=== PATIENT | female | born 1935 | race Caucasian/White ===

== ENCOUNTER 2016-12-28 18:24 | Emergency (ER) | payer MEDICARE ==
[2016-12-28 18:43] VITALS: TEMP 98.9
[2016-12-28 19:07] VITALS: BP 161/70
[2016-12-28 19:13] VITALS: PULSE 72; RESP 16
--- NOTE | 2016-12-28 19:35 | XR ---
EXAMINATION TYPE: XR chest 2V DATE OF EXAM: 12/28/2016 7:29 PM COMPARISON: 04/20/2016 INDICATION: Pain cough TECHNIQUE: 2 view chest FINDINGS: The heart size is normal. The pulmonary vasculature is normal. The lungs are clear. Degenerative changes are at the right shoulder. Lesser degenerative changes at the left shoulder. IMPRESSION: 1. Suspicious focal consolidations are not identified.
--- NOTE | 2016-12-28 19:45 | ED ---
General Adult HPI - General Chief complaint: Upper Respiratory Infection Stated complaint: cough, poss FB in throat Time Seen by Provider: 12/28/16 18:51 Source: patient, family Mode of arrival: ambulatory Limitations: altered mental status - History of Present Illness Initial comments: Is uog-xpyc-gor female with a history of hypertension or presents emergency report for cough. This morning she was taking her medications and seemed to choke on her medications. She then started coughing throughout the day. Her daughter was concerned that she might be developing pneumonia so she decided to come to the emergency department. She has not had any coughing since being in the emergency department. She does not feel short of breath. No fevers or chills. She denies any chest pain. She denies any complaints currently at all. - Related Data Home Medications Medication Instructions Recorded Confirmed Aspirin 81 mg PO DAILY 01/22/14 12/28/16 Atenolol [Tenormin] 25 mg PO BID 01/22/14 12/28/16 Ferrous Sulfate [Feosol] 325 mg PO DAILY 01/22/14 12/28/16 Hydrocodone/Acetaminophen 1 tab PO Q8H PRN 01/22/14 12/28/16 [Hydrocodone/Acetaminophen 5-325] Isosorbide Mononitrate ER [Imdur] 30 mg PO DAILY 01/22/14 12/28/16 Levothyroxine Sodium [Synthroid] 50 mcg PO DAILY 01/22/14 12/28/16 PARoxetine HCL 30 mg PO DAILY 01/22/14 12/28/16 Potassium Chloride [Klor-Con 10] 10 meq PO DAILY 01/22/14 12/28/16 Nystatin 100,000 Unit/gm Powd 1 applic TOPICAL DAILY PRN 01/23/14 12/28/16 [Mycostatin Powder] Allopurinol [Zyloprim] 100 mg PO DAILY 12/28/16 12/28/16 Losartan Potassium 100 mg PO DAILY 12/28/16 12/28/16 Nitroglycerin Sl Tabs [Nitrostat] 0.4 mg SUBLINGUAL Q5M PRN 12/28/16 12/28/16 Omeprazole 20 mg PO DAILY 12/28/16 12/28/16 Previous Rx's Medication Instructions Recorded Furosemide [Lasix] 20 mg PO DAILY #30 tab 01/25/14 Allergies Allergy/AdvReac Type Severity Reaction Status Date / Time amoxicillin Allergy Rash/Hives Verified 12/28/16 19:34 Review of Systems ROS Statement: Those systems with pertinent positive or pertinent negative responses have been documented in the HPI. ROS Other: All systems not noted in ROS Statement are negative. Past Medical History Past Medical History: Hypertension Additional Past Medical History / Comment(s): hypothyroid, mental retardation, chronic pain and hip, osteoarthritis, depression History of Any Multi-Drug Resistant Organisms: None Reported Past Surgical History: Cholecystectomy, Tonsillectomy Additional Past Surgical History / Comment(s): R leg sx, neck sx, cardiac stents Past Anesthesia/Blood Transfusion Reactions: No Reported Reaction Past Psychological History: No Psychological Hx Reported, Depression Smoking Status: Never smoker Past Alcohol Use History: None Reported Additional Past Alcohol Use History / Comment(s): BAT 0 Past Drug Use History: None Reported General Exam - General Exam Comments Initial Comments: Constitutional: Awake alert Appears comfortable Head: Normocephalic atraumatic Eyes: no conjunctival injection No scleral icterus EOMI Neck: No JVD Supple Heart: Regular rate rhythm normal S1-S2 no murmurs Lungs: Clear to auscultation bilaterally No wheezing No rales Abdomen: Soft nondistended nontender Extremities: Non edematous DP pulses intact Radial pulses intact Neuro: A&Ox3 No focal neurologic deficits Psych: Appropriate mood and affect Limitations: altered mental status Course Vital Signs 12/28/16 12/28/16 12/28/16 18:41 18:58 19:05 Temperature 98.9 F Pulse Rate 72 76 Respiratory 20 18 Rate Blood Pressure 208/89 214/90 161/70 O2 Sat by Pulse 95 96 Oximetry 12/28/16 19:12 Temperature Pulse Rate 72 Respiratory 16 Rate Blood Pressure 161/70 O2 Sat by Pulse 98 Oximetry Medical Decision Making - Medical Decision Making This is an 81-year-old female presents emergency department for cough. Chest x- ray was unremarkable for any signs of pneumonitis or pneumonia. She has not had any coughing since being in the emergency department. I told her that she can go home and she needs close follow-up the primary doctor. If she has any worsening or changing symptoms she can return emergency Department. All questions were answered. Disposition Clinical Impression: Cough Disposition: HOME SELF-CARE Condition: Stable Instructions: Cold Symptoms (ED) Additional Instructions: Return emergency Department if the cough becomes worse or if you develop fevers or chills. Follow-up with primary doctor for reevaluation. Referrals: Marcos Nick MD [Primary Care Provider] - 1-2 days
== END 2016-12-28 20:08 | disposition home or self-care (01) ==
LOC: EC 18:24
DX: R05 Cough (principal); R41.82 Altered mental status, unspecified; I10 Essential (primary) hypertension; E03.9 Hypothyroidism, unspecified; M19.90 Unspecified osteoarthritis, unspecified site; F32.9 Major depressive disorder, single episode, unspecified; Z79.82 Long term (current) use of aspirin; Z79.899 Other long term (current) drug therapy; Z88.0 Allergy status to penicillin
CPT/HCPCS: 71020; 99283

== ENCOUNTER 2017-09-10 12:53 | Emergency (ER) | payer MEDICARE ==
[2017-09-10] MEDS ORDERED: KETOROLAC 60 MG/2 ML VIAL IM STA (13:35)
--- NOTE | 2017-09-10 13:43 | ED ---
Fall HPI - General Chief Complaint: Fall Stated Complaint: Fall-facial injury Time Seen by Provider: 09/10/17 13:20 Source: patient Mode of arrival: wheelchair - History of Present Illness Initial Comments: The patient is an 82-year-old female, with a history of mental retardation, not on blood thinners, who presents with chief complaint fall. She presents the emergency department with her cousin who is her primary lens generator. [employer] Concierge states that she was at home, and stood up from the toilet and shortly after fell forward and struck her face on a shower chair. The patient did not lose consciousness. She was able to get up after the fall. The patient has walked since the fall. Patient denies any other injury at this time. She states that she has pain in her shoulders and hips however she has a history of arthritis in those areas. On initial evaluation, the patient is in no acute distress, she is alert and oriented, she understands the conversation around her and is able to answer. - Related Data Home Medications Medication Instructions Recorded Confirmed Aspirin 81 mg PO DAILY 01/22/14 09/10/17 Atenolol [Tenormin] 25 mg PO BID 01/22/14 09/10/17 Ferrous Sulfate [Feosol] 325 mg PO DAILY 01/22/14 09/10/17 Hydrocodone/Acetaminophen 1 tab PO Q8H PRN 01/22/14 09/10/17 [Hydrocodone/Acetaminophen 5-325] Isosorbide Mononitrate ER [Imdur] 30 mg PO DAILY 01/22/14 09/10/17 Levothyroxine Sodium [Synthroid] 50 mcg PO DAILY 01/22/14 09/10/17 PARoxetine HCL 30 mg PO DAILY 01/22/14 09/10/17 Potassium Chloride [Klor-Con 10] 10 meq PO DAILY 01/22/14 09/10/17 Allopurinol [Zyloprim] 100 mg PO DAILY 12/28/16 09/10/17 Losartan Potassium 100 mg PO DAILY 12/28/16 09/10/17 Nitroglycerin Sl Tabs [Nitrostat] 0.4 mg SUBLINGUAL Q5M PRN 12/28/16 09/10/17 Omeprazole 20 mg PO DAILY 12/28/16 09/10/17 Previous Rx's Medication Instructions Recorded Furosemide [Lasix] 20 mg PO DAILY #30 tab 01/25/14 Sulfamethox-Tmp 800-160Mg [Bactrim 1 tab PO Q12HR #14 tab 09/10/17 DS 800-160 mg] Allergies Allergy/AdvReac Type Severity Reaction Status Date / Time amoxicillin Allergy Rash/Hives Verified 09/10/17 13:29 Review of Systems ROS Statement: Those systems with pertinent positive or pertinent negative responses have been documented in the HPI. ROS Other: All systems not noted in ROS Statement are negative. Limitations: ROS unobtainable due to patients medical condition (Mental retardation) Past Medical History Past Medical History: Hypertension Additional Past Medical History / Comment(s): hypothyroid, mental retardation, chronic pain and hip, osteoarthritis, depression History of Any Multi-Drug Resistant Organisms: None Reported Past Surgical History: Cholecystectomy, Tonsillectomy Additional Past Surgical History / Comment(s): R leg sx, neck sx, cardiac stents Past Anesthesia/Blood Transfusion Reactions: No Reported Reaction Past Psychological History: No Psychological Hx Reported, Depression Smoking Status: Never smoker Past Alcohol Use History: None Reported Past Drug Use History: None Reported General Exam Limitations: no limitations General appearance: alert, in no apparent distress Head exam: Present: normocephalic, other (Patient has a large infraorbital hematoma on the right with swelling distally to the mandible. Patient has poor dentition however it appears to be intact. Patient is able to move her jaw well without any pain. There is no nasal bridge tenderness patient has no Rogers sign, there is no otorrhea) Eye exam: Present: PERRL ENT exam: Present: mucous membranes moist, TM's normal bilaterally Neck exam: Present: tenderness (Patient complains of tenderness to palpation of the paraspinal musculature.) Respiratory exam: Present: normal lung sounds bilaterally Cardiovascular Exam: Present: regular rate, normal rhythm GI/Abdominal exam: Present: soft. Absent: distended, tenderness Extremities exam: Present: normal inspection. Absent: pedal edema Neurological exam: Present: alert, oriented X3 Psychiatric exam: Present: normal affect, normal mood Skin exam: Present: warm, dry, intact Course Vital Signs 09/10/17 09/10/17 09/10/17 12:59 15:03 16:13 Temperature 96.8 F L 97.8 F Pulse Rate 80 73 Respiratory 18 20 20 Rate Blood Pressure 217/98 159/77 O2 Sat by Pulse 95 99 Oximetry Medical Decision Making - Medical Decision Making Patient is an 82-year-old female presents with her cousin lens generator who presents with a chief complaint of a fall at home. The patient stood up from the toilet and fell forward striking her face on the shower chair. The patient did not lose consciousness, she does not take blood thinners. On initial evaluation, the patient is in no acute distress and is alert and able to converse appropriately. Patient has a medical history of mental retardation which somewhat limits her history. Patient was placed in a c-collar. Patient will be sent for CT of the head and neck with CT imaging of the facial bones. She will have an x-ray of her chest and pelvis. Patient appears to be neurologically intact, she is moving all of her limbs appropriately and spontaneously. 4:17 PM Level evaluation of this patient shows evidence of a urinary tract infection. The patient will be treated outpatient with Bactrim. CT evaluation of the head neck and face did not show any acute displaced fracture. There is soft tissue swelling over the aforementioned area, redemonstrated on CT. At this time, patient is stable for discharge. She is instructed to follow-up with her primary care doctor or return to the emergency department if her symptoms worsen or change. - Lab Data Lab Results 09/10/17 Range/Units 15:31 Urine Color Yellow Urine Appearance Cloudy H (Clear) Urine pH 6.0 (5.0-8.0) Ur Specific [place] 1.011 (1.001-1.035) Urine Protein 2+ H (Negative) Urine Glucose (UA) Negative (Negative) Urine Ketones Negative (Negative) Urine Blood Negative (Negative) Urine Nitrite Positive H (Negative) Urine Bilirubin Negative (Negative) Urine Urobilinogen <2.0 (<2.0) mg/dL Ur Leukocyte Esterase Moderate H (Negative) Urine WBC 97 H (0-5) /hpf Urine WBC Clumps Occasional H (None) /hpf Ur Squamous Epith Cells 4 (0-4) /hpf Urine Bacteria Many H (None) /hpf Urine Mucus Rare H (None) /hpf Disposition Clinical Impression: Fall, UTI (urinary tract infection) Disposition: HOME SELF-CARE Condition: Good Instructions: Fall Prevention for Older Adults (ED), Dysuria (ED) Prescriptions: Sulfamethox-Tmp 800-160Mg [Bactrim DS 800-160 mg] 1 tab PO Q12HR #14 tab Referrals: Marcos Nick MD [Primary Care Provider] - 1-2 days
--- NOTE | 2017-09-10 14:27 | CT ---
EXAMINATION TYPE: CT brain cspine wo con, CT facial bones wo con DATE OF EXAM: 09/10/2017 COMPARISON: CT brain January 23, 2014 HISTORY: Fall, head and neck pain. (accession [id number]), Fall, right orbit swelling and bruising. (ac cession [id number]) CT DLP: 1702.1 (accession [id number]), 667.5 (accession [id number]) mGycm. Automated Exposure Control for Dose Reduction was Utilized. TECHNIQUE: CT scan of the head and cervical spine are performed without contrast. FINDINGS: There is no acute intracranial hemorrhage, mass effect, or midline shift identified. The ventricles and sulci are within normal limits in size. Some low-attenuation periventricular white ma tter is redemonstrated. Hyperostosis frontalis is seen. Calvarium is intact. There is moderate to large sized right frontal scalp hematoma just above frontal sinus level extendin g over nasal bridge. Nasal bones are intact. The orbital floors and young are intact bilaterally. The mandible is intact. There is degenerative change with narrowing and flattening of the condyles of louann th temporomandibular joints. The pterygoid plates are intact. The zygomatic arches are intact bilater ally. Visualized paranasal sinuses are clear. There is scleral calcification of both globes. There is preseptal hematoma on the right. Intraconal fat is preserved bilaterally. Cervical spine is visualized in its entirety from C1 through upper thoracic levels and demonstrates s coliotic curvature without evidence of acute fracture or dislocation. There is exaggerated cervical c urvature on sagittal images. Prevertebral soft tissue appears within normal limits. The C1-C2 articu lation shows marked lateral recess narrowing and atlantodental interval narrowing with subchondral cy stic change. There is grade 1 anterolisthesis of C3 on C4. Vertebral body heights are maintained. There is moderat e to advanced multilevel spurring and disc space narrowing. There is prior multilevel posterior decom pression surgery C3-C5 level. There are multilevel uncovertebral facet degenerative changes bilateral ly contributing to multilevel neural foraminal narrowing. Spur disc complexes efface the anterior the ba sac at C3-C4 level. There is large nodule left thyroid measuring 2.7 cm coronal image 22. Visuali zed lung apices are clear. IMPRESSION: 1. There is no acute fracture or dislocation evident in the cervical spine. Loss of normal cervical c urvature with multilevel moderate to advanced degenerative changes noted. Postsurgical change posteri or C3-C5 level noted. A 2.7 cm left thyroid nodule, nonemergent thyroid ultrasound follow-up advised. 2. No acute intracranial hemorrhage or midline shift is seen. 3. No acute facial bone fracture or dislocation. Moderate to large size acute right frontal scalp hem atoma extending to the preseptal region right globe noted.
--- NOTE | 2017-09-10 15:16 | XR ---
EXAMINATION TYPE: XR chest 2V DATE OF EXAM: 09/10/2017 COMPARISON: Chest x-ray 09/29/2016 HISTORY: Right-sided chest pain after fall injury TECHNIQUE: Frontal and lateral views of the chest are obtained. FINDINGS: Low lung volumes are redemonstrated. There is no focal air space opacity, pleural effusion , or pneumothorax seen. The cardiac silhouette size remains enlarged. Degenerative change both shoul ders most prominent right humeral head level is redemonstrated. IMPRESSION: Low lung volumes and cardiomegaly without acute pulmonary process.
--- NOTE | 2017-09-10 15:17 | XR ---
EXAMINATION TYPE: XR pelvis AP view DATE OF EXAM: 09/10/2017 CLINICAL HISTORY: Generalized pain after fall injury. TECHNIQUE: A single AP view of the pelvis is obtained. COMPARISON: None. FINDINGS: Osseous structures are demineralized as well as lucency from overlying bowel gas makes nikolai luation suboptimal. There is no acute fracture/dislocation evident in the pelvis. There is mild to mo derate joint space loss and acetabular spurring in both hips. Hyperdense round focus right iliac bone is nonspecific. The overlying soft tissue shows some vascular calcification. IMPRESSION: There is no acute fracture or dislocation in the pelvis.
[2017-09-10 15:56] LABS: Appearance,Urine Cloudy (Clear); Bacteria,Urine Many /hpf; Bilirubin,Urine Negative (Negative); Blood,Urine Negative (Negative); Color,Urine Yellow; Glucose,Urine (UA) Negative (Negative); Ketones,Urine Negative (Negative); Leukocyte Esterase,Urine Moderate (Negative); Mucus,Urine Rare /hpf; Nitrite,Urine Positive (Negative); Protein,Urine 2+ (Negative); Specific Gravity,Urine 1.011 (1.001-1.035); Squamous Epithelial Cell,Urine 4 /hpf (0-4); Urobilinogen,Urine <2.0 mg/dL (<2.0); WBC,Urine 97 /hpf (0-5)
[2017-09-10 16:14] VITALS: RESP 20
[2017-09-10 16:15] VITALS: BP 159/77; PULSE 73; TEMP 97.8
== END 2017-09-10 16:30 | disposition home or self-care (01) ==
LOC: EEVIPCON 12:53 → EC 12:53
DX: S00.83XA Contusion of other part of head, initial encounter (principal); N39.0 Urinary tract infection, site not specified; I10 Essential (primary) hypertension; E03.9 Hypothyroidism, unspecified; F79 Unspecified intellectual disabilities; F32.9 Major depressive disorder, single episode, unspecified; Z79.82 Long term (current) use of aspirin; Z79.899 Other long term (current) drug therapy; Z88.0 Allergy status to penicillin; W18.12XA Fall from or off toilet with subsequent striking against object, initial encounter; Y92.009 Unspecified place in unspecified non-institutional (private) residence as the place of occurrence of the external cause
CPT/HCPCS: 81001; 72170; 71046; 72125; 70486; 70450; 99284; 96372; J1885

== ENCOUNTER 2017-12-01 21:04 | Emergency (ER) | payer MEDICARE ==
--- NOTE | 2017-12-01 21:41 | ED ---
Fall HPI - General Chief Complaint: Fall Stated Complaint: Fell,arm pain Time Seen by Provider: 12/01/17 21:16 Source: patient, family Mode of arrival: wheelchair - History of Present Illness Initial Comments: 's patient is an 82-year-old woman presenting to be evaluated after she had a fall. History is from the patient and from her cousin who happens to be the patient's caregiver. She apparently was trying to get into a lift chair, and slid down the side of it landing on her right forearm and right hip. The patient is indicating pain to the right forearm. She denies any injury to her head, neck, chest, trunk. MD Complaint: fall -: minutes(s) Fall From: chair When Fall Occurred: just prior to arrival Fall Witnessed: no Place Fall Occurred: home Loss of Consciousness: none Prolonged Down Time?: no Location - Extremities: Right: Forearm Severity: mild Context: tripped/slipped Associated Symptoms: denies - Related Data Home Medications Medication Instructions Recorded Confirmed Aspirin 81 mg PO DAILY 01/22/14 12/01/17 Atenolol [Tenormin] 25 mg PO BID 01/22/14 12/01/17 Ferrous Sulfate [Feosol] 325 mg PO DAILY 01/22/14 12/01/17 Hydrocodone/Acetaminophen 1 tab PO Q8H PRN 01/22/14 12/01/17 [Hydrocodone/Acetaminophen 5-325] Isosorbide Mononitrate ER [Imdur] 30 mg PO DAILY 01/22/14 12/01/17 Levothyroxine Sodium [Synthroid] 50 mcg PO DAILY 01/22/14 12/01/17 PARoxetine HCL 30 mg PO DAILY 01/22/14 12/01/17 Potassium Chloride [Klor-Con 10] 10 meq PO DAILY 01/22/14 12/01/17 Allopurinol [Zyloprim] 100 mg PO DAILY 12/28/16 12/01/17 Losartan Potassium 100 mg PO DAILY 12/28/16 12/01/17 Nitroglycerin Sl Tabs [Nitrostat] 0.4 mg SUBLINGUAL Q5M PRN 12/28/16 12/01/17 Omeprazole 20 mg PO DAILY 12/28/16 12/01/17 Multivitamins, Thera [Multivitamin 1 tab PO DAILY 12/01/17 12/01/17 (formulary)] Previous Rx's Medication Instructions Recorded Furosemide [Lasix] 20 mg PO DAILY #30 tab 01/25/14 Allergies Allergy/AdvReac Type Severity Reaction Status Date / Time amoxicillin Allergy Rash/Hives Verified 12/01/17 21:30 Review of Systems ROS Statement: Those systems with pertinent positive or pertinent negative responses have been documented in the HPI. ROS Other: All systems not noted in ROS Statement are negative. Eyes: Denies: vision change Respiratory: Denies: cough, dyspnea Cardiovascular: Denies: chest pain, syncope Gastrointestinal: Denies: abdominal pain, vomiting Musculoskeletal: Reports: as per HPI, arthralgia (Right forearm). Denies: back pain Skin: Denies: lesions Neurological: Denies: headache, weakness Past Medical History Past Medical History: Hypertension Additional Past Medical History / Comment(s): hypothyroid, mental retardation, chronic pain and hip, osteoarthritis, depression History of Any Multi-Drug Resistant Organisms: None Reported Past Surgical History: Cholecystectomy, Tonsillectomy Additional Past Surgical History / Comment(s): R leg sx, neck sx, cardiac stents Past Anesthesia/Blood Transfusion Reactions: No Reported Reaction Past Psychological History: No Psychological Hx Reported, Depression Smoking Status: Never smoker Past Alcohol Use History: None Reported Past Drug Use History: None Reported General Exam Limitations: altered mental status General appearance: alert, in no apparent distress Head exam: Present: atraumatic, normocephalic Eye exam: Present: normal appearance. Absent: scleral icterus, conjunctival injection Neck exam: Present: normal inspection, full ROM. Absent: tenderness Respiratory exam: Present: normal lung sounds bilaterally. Absent: respiratory distress, wheezes, rales, rhonchi, stridor, chest wall tenderness Cardiovascular Exam: Present: regular rate, normal rhythm, normal heart sounds. Absent: systolic murmur, diastolic murmur, rubs, gallop GI/Abdominal exam: Present: soft. Absent: distended, tenderness, guarding, rebound Extremities exam: Present: tenderness, normal capillary refill, other (Soft tissue swelling and contusion to the dorsal aspect of the right distal forearm) Back exam: Absent: vertebral tenderness Neurological exam: Present: alert Skin exam: Present: warm, dry, intact, normal color. Absent: rash Course Vital Signs 12/01/17 21:08 Temperature 98.2 F Pulse Rate 69 Respiratory 20 Rate Blood Pressure 211/91 O2 Sat by Pulse 97 Oximetry Disposition Clinical Impression: Fall, Contusion Disposition: HOME SELF-CARE Condition: Good Instructions: Fall Prevention for Older Adults (ED), Contusion in Adults (ED) Referrals: Marcos Nick MD [Primary Care Provider] - 1-2 days
--- NOTE | 2017-12-01 21:56 | XR ---
EXAMINATION TYPE: XR forearm RT DATE OF EXAM: 12/01/2017 COMPARISON: NONE HISTORY: Forearm pain after falling TECHNIQUE: 3 views FINDINGS: There is severe degenerative change in the carpus with obliteration of most of the radiocar pal joint. There is narrowing and spurring at the first carpometacarpal joint. There is deformity of the scaphoid. The elbow joint is intact. There is spurring on the radial head. I see no acute fracture. IMPRESSION: Osteoarthritic changes in the carpus. No fracture seen.
[2017-12-01 23:23] VITALS: BP 144/98; PULSE 97; RESP 17; TEMP 97.9
== END 2017-12-01 23:23 | disposition home or self-care (01) ==
LOC: EC 21:04
DX: S50.11XA Contusion of right forearm, initial encounter (principal); E03.9 Hypothyroidism, unspecified; F32.9 Major depressive disorder, single episode, unspecified; Z95.5 Presence of coronary angioplasty implant and graft; Z79.82 Long term (current) use of aspirin; Z79.899 Other long term (current) drug therapy; Z88.0 Allergy status to penicillin; W07.XXXA Fall from chair, initial encounter; Y92.009 Unspecified place in unspecified non-institutional (private) residence as the place of occurrence of the external cause
CPT/HCPCS: 99283

== ENCOUNTER → 2018-03-08 | Outpatient (CLI) | payer MEDICARE ==
--- NOTE | 2018-03-09 07:07 | US ---
EXAMINATION TYPE: US kidneys/renal and bladder DATE OF EXAM: 03/08/2018 COMPARISON: US 2014 CLINICAL HISTORY: N18.3 Chronic Kidney Disease Stage III. CKD stage III EXAM MEASUREMENTS: Right Kidney: 8.6 x 4.1 x 3.6 cm Left Kidney: 8.8 x 4.3 x 4.6 cm Difficult and limited study due to patient body habitus Right Kidney: small in size, cortical thinning, no hydronephrosis or masses seen Left Kidney: small in size, cortical thinning, 0.9cm exophytic cystic area inferior pole, limited by rib shadowing Bladder: wnl Bilateral Jets seen: yes No pathologic calcification evident. Cortical medullary differentiation is maintained. IMPRESSION: Findings a similar to prior exam, renal sizes as described.
== END | disposition home or self-care (01) ==
LOC: RADUSWWP 14:31
PROVIDERS: ATTEND Internal Medicine
DX: N27.1 Small kidney, bilateral (principal); N28.1 Cyst of kidney, acquired; N18.3 Chronic kidney disease, stage 3 (moderate)
CPT/HCPCS: 76770

== ENCOUNTER 2019-04-01 19:33 | Inpatient (IN) | payer MEDICARE ==
--- NOTE | 2019-04-01 20:34 | ED ---
General Adult HPI - General Source: patient, EMS Mode of arrival: EMS Limitations: physical limitation <Chrissie Mac - Last Filed: 04/01/19 21:07> <Shai Dash - Last Filed: 04/01/19 23:27> - General Chief complaint: Fall Stated complaint: Fall Time Seen by Provider: 04/01/19 20:09 - History of Present Illness Initial comments: 84-year-old female presenting with her caregiver that she is complaining of falls refusal to take medication. Patient is a history of development delay. Per the caregiver she has been more defiant over the last 2 days, refusing to take her medications, refusing to assist with lifting. Today the patient fell and struck her right arm refused to get up. When asking the patient why she is refusing these things she states that she "wants to " patient states she feels frustrated that she was unable to attend school due to her develop mental delay that she was never able to have children. She denies chest pain or shortness of breath. She admits to a history of CHF and has been noncompliant with her lasix. Patient's sister and brother are her primary decision makers. Caregiver at bedside states she has lived with her for the last 22 years. She states she, as well as the patient's sibilings, are no longer able to take care of her in this state. She denies history of DVT/PE, recent surgery, active CA. (Chrissie Mac) - Related Data Home Medications Medication Instructions Recorded Confirmed Aspirin 81 mg PO DAILY 01/22/14 04/01/19 Atenolol [Tenormin] 25 mg PO BID 01/22/14 04/01/19 Ferrous Sulfate [Feosol] 325 mg PO DAILY 01/22/14 04/01/19 Hydrocodone/Acetaminophen 1 tab PO Q8H PRN 01/22/14 12/01/17 [Hydrocodone/Acetaminophen 5-325] Isosorbide Mononitrate ER [Imdur] 30 mg PO DAILY 01/22/14 04/01/19 Levothyroxine Sodium [Synthroid] 50 mcg PO DAILY 01/22/14 04/01/19 PARoxetine HCL 30 mg PO DAILY 01/22/14 04/01/19 Potassium Chloride [Klor-Con 10] 10 meq PO DAILY 01/22/14 04/01/19 Allopurinol [Zyloprim] 100 mg PO DAILY 12/28/16 04/01/19 Losartan Potassium 100 mg PO DAILY 12/28/16 04/01/19 Nitroglycerin Sl Tabs [Nitrostat] 0.4 mg SUBLINGUAL Q5M PRN 12/28/16 04/01/19 Omeprazole 20 mg PO DAILY 12/28/16 04/01/19 Multivitamins, Thera [Multivitamin 1 tab PO DAILY 12/01/17 04/01/19 (formulary)] Ergocalciferol (Vitamin D2) 50,000 unit PO MAGDALENO 04/01/19 04/01/19 [Vitamin D2] Previous Rx's Medication Instructions Recorded Furosemide [Lasix] 20 mg PO DAILY #30 tab 01/25/14 Allergies Allergy/AdvReac Type Severity Reaction Status Date / Time amoxicillin Allergy Rash/Hives Verified 04/01/19 20:04 Review of Systems ROS Other: All systems not noted in ROS Statement are negative. <Chrissie Mac - Last Filed: 04/01/19 21:07> ROS Other: All systems not noted in ROS Statement are negative. <Shai Dash - Last Filed: 04/01/19 23:27> ROS Statement: Those systems with pertinent positive or pertinent negative responses have been documented in the HPI. Review of Systems Constitutional: Denies fever, chills Eyes: Denies change in vision, Denies pain Ears, nose, mouth, throat: Denies headaches, Denies sore throat Cardiovascular: Denies chest pain. Denies palpitations Respiratory: Denies shortness of breath, Denies cough Gastrointestinal: Denies abdominal pain. Denies nausea, vomiting, diarrhea. Genitourinary: Denies hematuria, Denies infections Musculoskeletal: Denies pain, Denies swelling Integumentary: Denies rash Neurological: Denies headache, focal weakness, focal numbness Psychiatric: Positive depression. Hematologic/Lymphatic: Denies easy bleeding or bruising (Chrissie Mac) Past Medical History Past Medical History: Hypertension Additional Past Medical History / Comment(s): hypothyroid, mental retardation, chronic pain and hip, osteoarthritis, depression History of Any Multi-Drug Resistant Organisms: None Reported Past Surgical History: Cholecystectomy, Tonsillectomy Additional Past Surgical History / Comment(s): R leg sx, neck sx, cardiac stents Past Anesthesia/Blood Transfusion Reactions: No Reported Reaction Past Psychological History: No Psychological Hx Reported, Depression Smoking Status: Never smoker Past Alcohol Use History: None Reported Past Drug Use History: None Reported <Chrissie Mac - Last Filed: 04/01/19 21:07> General Exam Limitations: physical limitation <Chrissie Mac - Last Filed: 04/01/19 21:07> - General Exam Comments Initial Comments: General: Awake, alert, No acute Distress HENT: Normocephalic. Atraumatic. Dry mucus membranes Eyes: PERRL. EOMI. No scleral icterus. No injected conjunctiva Neck: Full ROM Chest/Lungs: Rales bilaterally. Cardiac: Regular rate, rhythm. No murmurs or rubs. BLE edema. Abdomen/GI: Soft, nontender, nondistended. No rebound, guarding, or rigidity. Musculoskeletal: Full ROM Skin: Warm, dry, intact. Brusing to RUE with small non-bleeding abrasion. Neurologic: A/Ox3, no weakness, no sensory deficit, no abnormal gait, no coordin ation deficit. Slurred speech (chronic) (Chrissie Mac) Course Vital Signs 04/01/19 04/01/19 04/01/19 19:50 22:00 23:00 Temperature 98.4 F Pulse Rate 77 68 72 Respiratory 20 18 18 Rate Blood Pressure 154/88 156/78 161/68 O2 Sat by Pulse 94 L 99 99 Oximetry EKG Findings - EKG Comments: EKG Findings:: EKG shows normal sinus rhythm at a rate of [address] segment elevation, depression. No prolonged QT/QTc or ID interval. No dysrythmia noted. <Chrissie Mac - Last Filed: 04/01/19 21:07> Medical Decision Making - Lab Data Result diagrams: 04/01/19 20:50 <Chrissie Mac - Last Filed: 04/01/19 21:07> - Lab Data Result diagrams: 04/01/19 20:50 04/01/19 20:50 - Radiology Data Radiology results: report reviewed (I did review the imaging and report no definite acute findings), image reviewed <Shai Dash - Last Filed: 04/01/19 23:27> - Medical Decision Making I did discuss findings with the patient's family members. Patient's been noncompliant for at least 2 days with her Lasix and other medications. Additionally she did not allow anyone to change her breathing for 2 days urine did smell strongly the UA is pending at this time I did discuss case Dr. Nick the patient will be admitted (Shai Dash) - Lab Data Lab Results 04/01/19 04/01/19 04/01/19 Range/Units 20:50 20:50 20:50 WBC 6.8 (3.8-10.6) k/uL RBC 4.05 (3.80-5.40) m/uL Hgb 12.1 (11.4-16.0) gm/dL Hct 38.5 (34.0-46.0) % MCV 95.0 (80.0-100.0) fL MCH 30.0 (25.0-35.0) pg MCHC 31.6 (31.0-37.0) g/dL RDW 13.0 (11.5-15.5) % Plt Count 209 (150-450) k/uL Neutrophils % 60 % Lymphocytes % 26 % Monocytes % 7 % Eosinophils % 3 % Basophils % 1 % Neutrophils # 4.1 (1.3-7.7) k/uL Lymphocytes # 1.8 (1.0-4.8) k/uL Monocytes # 0.5 (0-1.0) k/uL Eosinophils # 0.2 (0-0.7) k/uL Basophils # 0.0 (0-0.2) k/uL Sodium 142 (137-145) mmol/L Potassium 4.4 (3.5-5.1) mmol/L Chloride 106 (98-107) mmol/L Carbon Dioxide 28 (22-30) mmol/L Anion Gap 8 mmol/L BUN 54 H (7-17) mg/dL Creatinine 2.08 H (0.52-1.04) mg/dL Est GFR (CKD-EPI)AfAm 25 (>60 ml/min/1.73 sqM) Est GFR (CKD-EPI)NonAf 22 (>60 ml/min/1.73 sqM) Glucose 129 H (74-99) mg/dL Calcium 10.0 (8.4-10.2) mg/dL Troponin I (0.000-0.034) ng/mL NT-Pro-B Natriuret Pep 1230 pg/mL 04/01/19 Range/Units 20:50 WBC (3.8-10.6) k/uL RBC (3.80-5.40) m/uL Hgb (11.4-16.0) gm/dL Hct (34.0-46.0) % MCV (80.0-100.0) fL MCH (25.0-35.0) pg MCHC (31.0-37.0) g/dL RDW (11.5-15.5) % Plt Count (150-450) k/uL Neutrophils % % Lymphocytes % % Monocytes % % Eosinophils % % Basophils % % Neutrophils # (1.3-7.7) k/uL Lymphocytes # (1.0-4.8) k/uL Monocytes # (0-1.0) k/uL Eosinophils # (0-0.7) k/uL Basophils # (0-0.2) k/uL Sodium (137-145) mmol/L Potassium (3.5-5.1) mmol/L Chloride (98-107) mmol/L Carbon Dioxide (22-30) mmol/L Anion Gap mmol/L BUN (7-17) mg/dL Creatinine (0.52-1.04) mg/dL Est GFR (CKD-EPI)AfAm (>60 ml/min/1.73 sqM) Est GFR (CKD-EPI)NonAf (>60 ml/min/1.73 sqM) Glucose (74-99) mg/dL Calcium (8.4-10.2) mg/dL Troponin I 0.013 (0.000-0.034) ng/mL NT-Pro-B Natriuret Pep pg/mL Disposition <Chrissie Mac - Last Filed: 04/01/19 21:07> <Shai Dash - Last Filed: 04/01/19 23:27> Clinical Impression: Congestive heart failure (CHF), Noncompliance, Hypoxemia Disposition: ADMITTED IP TO THIS HOSP Condition: Fair Referrals: Marcos Nick MD [Primary Care Provider] - 1-2 days
[2019-04-01 21:07] LABS: Basophils % (A) 1 %; Eosinophils # (A) 0.2 k/uL (0-0.7); Eosinophils % (A) 3 %; HCT 38.5 % (34.0-46.0); HGB 12.1 gm/dL (11.4-16.0); Lymphocytes # (A) 1.8 k/uL (1.0-4.8); Lymphocytes % (A) 26 %; MCHC 31.6 g/dL (31.0-37.0); Mean Platelet Volume 9.5; Monocytes # (A) 0.5 k/uL (0-1.0); Monocytes % (A) 7 %; Neutrophils # (A) 4.1 k/uL (1.3-7.7); Neutrophils % (A) 60 %; Platelet Count 209 k/uL (150-450); RBC 4.05 m/uL (3.80-5.40); WBC 6.8 k/uL (3.8-10.6)
[2019-04-01 21:15] LABS: Potassium 4.4 mmol/L (3.5-5.1)
--- NOTE | 2019-04-01 21:57 | XR ---
EXAMINATION TYPE: XR chest 2V DATE OF EXAM: 04/01/2019 COMPARISON: 09/10/2017 HISTORY: Chest pain TECHNIQUE: Frontal and lateral views of the chest are obtained. FINDINGS: There is no heart failure nor confluent pneumonic infiltrate. There is significant arthrit ic disease in both shoulder joints. Thoracic aorta is atheromatous. There is no definite pleural effu yue. IMPRESSION: Poor inspiration that is decreased slightly compared to old exam. No heart failure.
[2019-04-01] MEDS ORDERED: NITROGLYCERIN SL TABS 0.4 MG TAB SUBLINGUAL PRN (23:29)
[2019-04-01 23:40] LABS: Appearance,Urine Clear (Clear); Bacteria,Urine Few /hpf; Bilirubin,Urine Negative (Negative); Blood,Urine Negative (Negative); Color,Urine Yellow; Glucose,Urine (UA) Negative (Negative); Ketones,Urine Negative (Negative); Leukocyte Esterase,Urine Small (Negative); Mucus,Urine Rare /hpf; Nitrite,Urine Negative (Negative); PH, Urine 6.5 (5.0-8.0); Protein,Urine 2+ (Negative); RBC,Urine <1 /hpf (0-5); Specific Gravity,Urine 1.013 (1.001-1.035); Squamous Epithelial Cell,Urine 1 /hpf (0-4); Urobilinogen,Urine <2.0 mg/dL (<2.0)
[2019-04-02] MEDS: FUROSEMIDE 10 MG/ML 4 ML VIAL IV SCH ×2 (00:59→11:41)
[2019-04-02] MEDS: IPRATROPIUM-ALBUTEROL 3 ML NEB INHALATION SCH ×4 (02:58→19:56)
[2019-04-02] MEDS: LEVOTHYROXINE 50 MCG TAB PO SCH (06:13)
[2019-04-02] MEDS ORDERED: PANTOPRAZOLE 40 MG TABLET PO SCH (06:30)
[2019-04-02] MEDS: MULTIVITAMINS, THERA 1 EACH TAB PO SCH (08:54)
[2019-04-02] MEDS: POTASSIUM CHLORIDE ER 10 MEQ TAB.ER.PRT PO SCH (08:54)
[2019-04-02] MEDS: ALLOPURINOL 100 MG TAB PO SCH (08:54)
[2019-04-02] MEDS: ISOSORBIDE MONONITRATE ER 30 MG TAB.ER.24H PO SCH (08:54)
[2019-04-02] MEDS: ASPIRIN 81 MG PO SCH (08:54)
[2019-04-02] MEDS: PARoxetine 10 MG TAB PO SCH (08:54)
[2019-04-02] MEDS: FERROUS SULFATE 325 MG TAB PO SCH (08:54)
[2019-04-02] MEDS ORDERED: LOSARTAN 50 MG TAB PO SCH (09:00)
[2019-04-02] MEDS ORDERED: FUROSEMIDE 20 MG TAB PO SCH (09:00)
[2019-04-02] MEDS ORDERED: ATENOLOL 25 MG TAB PO SCH (09:00)
--- NOTE | 2019-04-02 10:09 | P.HPIM ---
History of Present Illness H&P Date: 04/02/19 This is an 84-year-old female patient who presented with complaints of CHF exacerbation and noncompliance with medication. Patient currently resides at home with caretakers and was reported that patient was refusing medication. Patient has a history of developmental delay and per ER records patient had been more defiant with the past 2 days with caretakers regards to taking her medication in assisted with lifting. Additional medical history includes heart failure, hypertension, hypothyroidism, chronic pain in hip, osteoarthritis and depression. Chest x-ray completed showing poor inspiration that is decreased slightly compared to old exam failure. BNP 1230. Troponin 0.013. Urinary anal ysis showing small amount of leukocyte Estrace patient's creatinine elevated at 2.08 and bun 54. On examination patient is eating breakfast. Patient unable to discuss why she is not taking her medication. Patient denies any chest pain or shortness of breath. Patient denies nausea vomiting or diarrhea. Patient does state she has burning with urination. Review of Systems Please refer to HPI otherwise unremarkable Past Medical History Past Medical History: Heart Failure, Hypertension Additional Past Medical History / Comment(s): hypothyroid, mental retardation, chronic pain and hip, osteoarthritis, depression History of Any Multi-Drug Resistant Organisms: None Reported Past Surgical History: Cholecystectomy, Tonsillectomy Additional Past Surgical History / Comment(s): R leg sx, neck sx, cardiac stents Past Anesthesia/Blood Transfusion Reactions: No Reported Reaction Past Psychological History: Depression Smoking Status: Never smoker Past Alcohol Use History: None Reported Additional Past Alcohol Use History / Comment(s): BAT 0 Past Drug Use History: None Reported Medications and Allergies Home Medications Medication Instructions Recorded Confirmed Type Aspirin 81 mg PO DAILY 01/22/14 04/01/19 History Atenolol [Tenormin] 25 mg PO BID 01/22/14 04/01/19 History Ferrous Sulfate [Feosol] 325 mg PO DAILY 01/22/14 04/01/19 History Hydrocodone/Acetaminophen 1 tab PO Q8H PRN 01/22/14 12/01/17 History [Hydrocodone/Acetaminophen 5-325] Isosorbide Mononitrate ER [Imdur] 30 mg PO DAILY 01/22/14 04/01/19 History Levothyroxine Sodium [Synthroid] 50 mcg PO DAILY 01/22/14 04/01/19 History PARoxetine HCL 30 mg PO DAILY 01/22/14 04/01/19 History Potassium Chloride [Klor-Con 10] 10 meq PO DAILY 01/22/14 04/01/19 History Furosemide [Lasix] 20 mg PO DAILY #30 tab 01/25/14 04/01/19 Rx Allopurinol [Zyloprim] 100 mg PO DAILY 12/28/16 04/01/19 History Losartan Potassium 100 mg PO DAILY 12/28/16 04/01/19 History Nitroglycerin Sl Tabs [Nitrostat] 0.4 mg SUBLINGUAL Q5M PRN 12/28/16 04/01/19 History Omeprazole 20 mg PO DAILY 12/28/16 04/01/19 History Multivitamins, Thera [Multivitamin 1 tab PO DAILY 12/01/17 04/01/19 History (formulary)] Ergocalciferol (Vitamin D2) 50,000 unit PO MAGDALENO 04/01/19 04/01/19 History [Vitamin D2] Allergies Allergy/AdvReac Type Severity Reaction Status Date / Time amoxicillin Allergy Rash/Hives Verified 04/01/19 20:04 Physical Exam Vitals: Vital Signs Temp Pulse Pulse Resp BP BP Pulse Ox 04/02/19 05:44 98.5 F 77 18 167/74 98 04/02/19 00:47 97.9 F 71 18 152/68 99 04/01/19 23:00 72 18 161/68 99 04/01/19 22:00 68 18 156/78 99 04/01/19 19:50 98.4 F 77 20 154/88 94 L Intake and Output 04/01/19 04/02/19 04/02/19 22:59 06:59 14:59 Other: Voiding Method Diaper Diaper Incontinent Incontinent # Voids 1 # Bowel Movements 1 Weight 80.739 kg 79 kg Head normocephalic Neck supple Lungs diminished bilaterally Heart regular rate and rhythm S1-S2, no rub or gallop Abdomen is soft nontender nondistended positive bowel sounds no hepatosplenomegaly Extremities no edema Neuro developmentally delayed. Patient does follow commands Results CBC & Chem 7: 04/01/19 20:50 04/01/19 20:50 Labs: Abnormal Lab Results - Last 24 Hours (Table) 04/01/19 04/01/19 Range/Units 20:50 23:00 BUN 54 H (7-17) mg/dL Creatinine 2.08 H (0.52-1.04) mg/dL Glucose 129 H (74-99) mg/dL Urine Protein 2+ H (Negative) Ur Leukocyte Esterase Small H (Negative) Urine WBC 14 H (0-5) /hpf Urine WBC Clumps Rare H (None) /hpf Urine Bacteria Few H (None) /hpf Urine Mucus Rare H (None) /hpf Thrombosis Risk Factor Assmnt - Choose All That Apply Any of the Below Risk Factors Present?: Yes Each Factor Represents 1 point: Heart failure (<1month), Obesity (BMI >25) Other Risk Factors: Yes Each Risk Factor Represents 3 Points: Age 75 years or older Other congenital or acquired thrombophilia - If yes, enter type in comment: No Thrombosis Risk Factor Assessment Total Risk Factor Score: 5 Thrombosis Risk Factor Assessment Level: High Risk Assessment and Plan Assessment: 1. Possible CHF exacerbation. Cardiology services have been consulted. Patient started on IV Lasix. 2. Acute kidney injury. Creatinine elevated at 2.08 and bun 54. will Continue to monitor closely 3. Urinary tract infection. UA showing small amount of leukocyte Estrace. Urine culture added patient will be started on Cipro 4. History of congestive heart failure 5. History of essential hypertension 6. History of hypothyroidism. TSH level has been ordered 7. History of chronic pain to hip 8. History of depression 9. History of osteoarthritis 10. History of medication DVT prophylaxis heparin. GI prophylaxis Pepcid Time with Patient: Greater than 30 (Greater than 60% of the total time spent in counseling and coordination of care. I performed an examination of the patient and discussed their management with the Nurse Practitioner. I have reviewed the Nurse Practitioner's notes and agree with the documented findings and plan of care)
[2019-04-02 10:16] LABS: Basophils % (A) 0 %; Eosinophils # (A) 0.2 k/uL (0-0.7); Eosinophils % (A) 3 %; HCT 35.5 % (34.0-46.0); Lymphocytes # (A) 1.6 k/uL (1.0-4.8); Lymphocytes % (A) 23 %; MCH 29.4 pg (25.0-35.0); MCHC 30.9 g/dL (31.0-37.0); MCV 95.3 fL (80.0-100.0); Mean Platelet Volume 9.3; Monocytes # (A) 0.5 k/uL (0-1.0); Monocytes % (A) 7 %; Neutrophils # (A) 4.4 k/uL (1.3-7.7); Neutrophils % (A) 64 %; Platelet Count 190 k/uL (150-450); RBC 3.73 m/uL (3.80-5.40); WBC 6.9 k/uL (3.8-10.6)
[2019-04-02 10:21] LABS: Albumin 3.1 g/dL (3.5-5.0); Calcium 9.5 mg/dL (8.4-10.2); Potassium 4.6 mmol/L (3.5-5.1); Total Bilirubin 0.5 mg/dL (0.2-1.3); Total Protein 5.2 g/dL (6.3-8.2)
[2019-04-02 13:14] VITALS: BMI 31.8
[2019-04-02] MEDS ORDERED: amLODIPine 10 MG TAB PO SCH (13:45)
--- NOTE | 2019-04-02 13:46 | P.CRDCN ---
History of Present Illness History of present illness: This is a pleasant 84-year-old female past medical history significant for developmental delay causing altered mental status. Patient does not speak and give any history. Information is obtained from the chart as well as nursing staff. She also apparently has a history of coronary artery disease, hypertension, hypothyroidism and depression. She does not follow regularly with anyone in our office. We have been asked to see her in consultation secondary to possible heart failure. Per the emergency department notes she was brought in by her family secondary to increased defiance and refusing taking her medications. There is some concern about their ability to continue to take care of her at home. She is seen and examined resting comfortably in bed in no acute distress. She is lying completely flat and satting 94% on room air. EKG reveals sinus mechanism, left axis deviation, old anterior wall infarction and nonspecific changes. Chest x-ray is negative with no pleural effusion, infiltrate or failure noted. Laboratory data reviewed, WBC 6.9, hemoglobin 11, platelets 190, sodium 141, potassium 4.6, creatinine 1.85, troponin negative, NTproBNP 1230, TSH 2.2. Current cardiac medications include aspirin 81 mg daily, atenolol 25 mg twice a day, Lasix 20 mg daily, Imdur 30 mg daily, losartan 100 mg daily and potassium supplementation daily. Most recent echocardiogram obtained in 2011 reveals preserved LV systolic function. Most recent stress test performed in 2012 with a Lexiscan stress test revealed a fixed defect in the inferior apical wall with no evidence of reversibility. Unable to obtain accurate review of systems secondary to altered mental status and developmental delay. Blood pressure 167/74 heart rate 77 afebrile maintaining oxygen saturation on room air GENERAL: This is a 84-year-old female in no apparent distress at the time of my examination. HEENT: Head is atraumatic, normocephalic. Pupils are equal, round. Sclerae anic teric. Conjunctivae are clear. Mucous membranes of the mouth are moist. Neck is supple. There is no jugular venous distention. No carotid bruit is heard. LUNGS: Clear to auscultation no wheezes, rales or rhonchi. No chest wall tenderness is noted on palpation or with deep breathing. HEART: Regular rate and rhythm with systolic ejection murmur at the base as well as left sternal border, no rubs or gallops. S1 and S2 heard. ABDOMEN: Soft, nontender. Bowel sounds are heard. No organomegaly noted. EXTREMITIES: No evidence of peripheral edema and no calf tenderness noted. VASCULAR: Radial and dorsalis pedis pulses palpated, no evidence of clubbing. NEUROLOGIC: Patient is awake, alert and nonverbal. ASSESSMENT Altered mental status Sinus bradycardia Urinary tract infection History of coronary artery disease status post stent placement per the medical record, exact details are unavailable. Hypertension PLAN Clinically the patient is euvolemic and not in heart failure. Underlying sinus node disease not entirely ruled out. Recommend discontinuation of beta blockers and ongoing telemetry monitoring. Initiate on amlodipine 10 mg daily for blood pressure control. Discontinue IV lasix and place on PO 20 mg BID. Obtain 2D echocardiogram and doppler study to assess cardiac structure and function. Thank you kindly for this consultation. Nurse Practitioner note has been reviewed, I agree with a documented findings and plan of care. Patient was seen and examined. Past Medical History Past Medical History: Heart Failure, Hypertension Additional Past Medical History / Comment(s): hypothyroid, mental retardation, chronic pain and hip, osteoarthritis, depression History of Any Multi-Drug Resistant Organisms: None Reported Past Surgical History: Cholecystectomy, Tonsillectomy Additional Past Surgical History / Comment(s): R leg sx, neck sx, cardiac stents Past Anesthesia/Blood Transfusion Reactions: No Reported Reaction Past Psychological History: Depression Smoking Status: Never smoker Past Alcohol Use History: None Reported Additional Past Alcohol Use History / Comment(s): BAT 0 Past Drug Use History: None Reported Medications and Allergies Home Medications Medication Instructions Recorded Confirmed Type Aspirin 81 mg PO DAILY 01/22/14 04/01/19 History Atenolol [Tenormin] 25 mg PO BID 01/22/14 04/01/19 History Ferrous Sulfate [Feosol] 325 mg PO DAILY 01/22/14 04/01/19 History Hydrocodone/Acetaminophen 1 tab PO Q8H PRN 01/22/14 12/01/17 History [Hydrocodone/Acetaminophen 5-325] Isosorbide Mononitrate ER [Imdur] 30 mg PO DAILY 01/22/14 04/01/19 History Levothyroxine Sodium [Synthroid] 50 mcg PO DAILY 01/22/14 04/01/19 History PARoxetine HCL 30 mg PO DAILY 01/22/14 04/01/19 History Potassium Chloride [Klor-Con 10] 10 meq PO DAILY 01/22/14 04/01/19 History Furosemide [Lasix] 20 mg PO DAILY #30 tab 01/25/14 04/01/19 Rx Allopurinol [Zyloprim] 100 mg PO DAILY 12/28/16 04/01/19 History Losartan Potassium 100 mg PO DAILY 12/28/16 04/01/19 History Nitroglycerin Sl Tabs [Nitrostat] 0.4 mg SUBLINGUAL Q5M PRN 12/28/16 04/01/19 History Omeprazole 20 mg PO DAILY 12/28/16 04/01/19 History Multivitamins, Thera [Multivitamin 1 tab PO DAILY 12/01/17 04/01/19 History (formulary)] Ergocalciferol (Vitamin D2) 50,000 unit PO SOTELO 04/01/19 04/01/19 History [Vitamin D2] Allergies Allergy/AdvReac Type Severity Reaction Status Date / Time amoxicillin Allergy Rash/Hives Verified 04/01/19 20:04 Physical Exam Vitals: Vital Signs Temp Pulse Pulse Resp BP BP Pulse Ox 04/02/19 13:04 52 L 04/02/19 12:50 43 L 18 04/02/19 12:11 98 F 45 L 18 138/63 100 04/02/19 05:44 98.5 F 77 18 167/74 98 04/02/19 00:47 97.9 F 71 18 152/68 99 04/01/19 23:00 72 18 161/68 99 04/01/19 22:00 68 18 156/78 99 04/01/19 19:50 98.4 F 77 20 154/88 94 L Intake and Output 04/01/19 04/02/19 04/02/19 22:59 06:59 14:59 Other: Voiding Method Diaper Diaper Incontinent Incontinent # Voids 1 # Bowel Movements 1 Weight 80.739 kg 79 kg 79 kg Results 04/02/19 09:43 04/02/19 09:43 Cardiac Enzymes 04/01/19 04/02/19 Range/Units 20:50 09:43 AST 18 (14-36) U/L Troponin I 0.013 (0.000-0.034) ng/mL CBC 04/01/19 04/02/19 Range/Units 20:50 09:43 WBC 6.8 6.9 (3.8-10.6) k/uL RBC 4.05 3.73 L (3.80-5.40) m/uL Hgb 12.1 11.0 L (11.4-16.0) gm/dL Hct 38.5 35.5 (34.0-46.0) % Plt Count 209 190 (150-450) k/uL Comprehensive Metabolic Panel 04/01/19 04/02/19 Range/Units 20:50 09:43 Sodium 142 141 (137-145) mmol/L Potassium 4.4 4.6 (3.5-5.1) mmol/L Chloride 106 105 (98-107) mmol/L Carbon Dioxide 28 28 (22-30) mmol/L BUN 54 H 52 H (7-17) mg/dL Creatinine 2.08 H 1.85 H (0.52-1.04) mg/dL Glucose 129 H 167 H (74-99) mg/dL Calcium 10.0 9.5 (8.4-10.2) mg/dL AST 18 (14-36) U/L ALT 18 (9-52) U/L Alkaline Phosphatase 72 (38-126) U/L Total Protein 5.2 L (6.3-8.2) g/dL Albumin 3.1 L (3.5-5.0) g/dL Current Medications Generic Name Dose Route Start Last Admin Trade Name Freq PRN Reason Stop Dose Admin Hydrocodone Bitart/Acetaminophen 1 each 04/01/19 23:29 Hitchcock 5-325 PO Q8H PRN Pain Albuterol/Ipratropium 3 ml 04/02/19 00:00 04/02/19 12:54 Duoneb 0.5 Mg-3 Mg/3 Ml Soln INHALATION 3 ml Q6HR CECILIA Administration Allopurinol 100 mg 04/02/19 09:00 04/02/19 08:54 Zyloprim PO 100 mg DAILY [facility] Administration Amlodipine Besylate 10 mg 04/02/19 13:45 Norvasc PO DAILY [facility] Aspirin 81 mg 04/02/19 09:00 04/02/19 08:54 Aspirin PO 81 mg DAILY [facility] Administration Ciprofloxacin 500 mg 04/02/19 21:00 Cipro PO BID [facility] Ergocalciferol 50,000 unit 04/07/19 09:00 Vitamin D2 PO Sotelo@0900 [facility] Famotidine 20 mg 04/03/19 09:00 Pepcid PO DAILY CECILIA Ferrous Sulfate 325 mg 04/02/19 09:00 04/02/19 08:54 Feosol PO 325 mg DAILY CECILIA Administration Furosemide 20 mg 04/02/19 16:00 Lasix PO BID@0900,1600 [facility] Heparin Sodium (Porcine) 5,000 unit 04/02/19 21:00 Heparin SQ Q12HR [facility] Isosorbide Mononitrate 30 mg 04/02/19 09:00 04/02/19 08:54 Imdur PO 30 mg DAILY CECILIA Administration Levothyroxine Sodium 50 mcg 04/02/19 06:30 04/02/19 06:13 Synthroid PO 50 mcg DAILY@0630 [facility] Administration Multivitamins 1 each 04/02/19 09:00 04/02/19 08:54 Theragran PO 1 each DAILY CECILIA Administration Paroxetine HCl 30 mg 04/02/19 09:00 04/02/19 08:54 Paxil PO 30 mg DAILY CECILIA Administration Potassium Chloride 10 meq 04/02/19 09:00 04/02/19 08:54 K-Dur 10 PO 10 meq DAILY CECILIA Administration Intake and Output 04/01/19 04/02/19 04/02/19 22:59 06:59 14:59 Other: Voiding Method Diaper Diaper Incontinent Incontinent # Voids 1 # Bowel Movements 1 Weight 80.739 kg 79 kg 79 kg Patient Weight 04/03/19 06:59 Weight 79 kg 04/02/19 09:43 04/02/19 09:43
--- NOTE | 2019-04-02 14:40 | US ---
EXAMINATION TYPE: US venous doppler duplex LE DATE OF EXAM: 04/02/2019 2:03 PM COMPARISON: NONE CLINICAL HISTORY: increased leg swelling. Mentally challenged patient who could not tolerate moving h er legs to exam and was morbidly obese SIDE PERFORMED: bilateral TECHNIQUE: The lower extremity deep venous system is examined utilizing real time linear array sonog tejas with graded compression, doppler sonography and color-flow sonography. VESSELS IMAGED: External Iliac Vein (EIV) Common Femoral Vein Deep Femoral Vein Greater Saphenous Vein * Femoral Vein Popliteal Vein Small Saphenous Vein * Proximal Calf Veins (* superficial vessels) large habitus, mentally challenged patient who did not understand exam or could move her legs into the right positioning. She was in pain within both popiteal fossa and did not allow me to image. Grayscale, color doppler, spectral doppler imaging performed of the deep veins of the lower extremiti es. Right Leg: Limited exam, only able to visualize vessels within thigh and groin, Left Leg: Very limited exam, only able to visualize femoral vein and appears patent with color flow seen with compression. No popiteal imaging due to patients pain and inability to move leg. IMPRESSION: Extremely limited examination due to patient compliance and pain. Only the proximal th igh and groin vessels on the right were visualized without thrombus and on the left there is only vis ualization of the femoral vein without thrombus seen. Generalized subcutaneous edema is noted.
[2019-04-02] MEDS: CIPROFLOXACIN HCL 500 MG TAB PO SCH (15:05)
[2019-04-02] MEDS: FUROSEMIDE 20 MG TAB PO SCH (15:05)
--- NOTE | 2019-04-02 15:19 | XR ---
Left leg HISTORY: Pain, trauma 2 views of the left leg on 4 images Soft tissue swelling is noted. Bone mineralization is reduced which could limit sensitivity. Alignmen t is maintained. Arthropathy noted in the left knee. There are vascular calcifications noted. IMPRESSION: No fracture or dislocation.
--- NOTE | 2019-04-02 15:21 | XR ---
Left femur HISTORY: Trauma and pain 2 views of the left femur on 4 images Bone mineralization is reduced. There is osteoarthritis change in the left knee. Alignment is maintai subhash. Suprapatellar joint effusion is likely present. Hypertrophic change present at the patellofemora l joint, small ossific density at the superior aspect of the patella appears well-corticated and is n ot felt likely to be acute. IMPRESSION: No fracture or dislocation.
--- NOTE | 2019-04-02 15:23 | XR ---
Left forearm HISTORY: Trauma and pain 2 views of the left forearm No comparisons Bone mineralization is reduced which could limit sensitivity. Arthropathy present at the wrist. Align ment is maintained. There is arthropathy in the elbow joint. Remodeling of the radial head is noted. No evident elbow joint effusion. Probable subchondral geode formation at the distal radius. IMPRESSION: No fracture or dislocation is evident. Marked arthropathy changes.
--- NOTE | 2019-04-02 15:24 | XR ---
Left humerus and left shoulder HISTORY: Trauma and pain 2 views of the left humerus, 3 views of the left shoulder submitted. There is marked arthropathy of the glenohumeral joint. Bone mineralization is reduced which could rosado it sensitivity. Alignment is maintained. There is arthropathy at the elbow joint. Overlying artifacts are noted. Distal left clavicle shows possible prior postop change. IMPRESSION: No fracture or dislocation.
[2019-04-02] MEDS ORDERED: CIPROFLOXACIN HCL 500 MG TAB PO SCH (21:00)
[2019-04-02] MEDS: HEPARIN SODIUM,PORCINE 5,000 UNIT/ML 1 ML VIAL SQ SCH (21:03)
[2019-04-02] MEDS: HYDROcodone/APAP 5-325MG 1 EACH TAB PO PRN (21:08)
[2019-04-03] MEDS: IPRATROPIUM-ALBUTEROL 3 ML NEB INHALATION SCH ×4 (03:57→20:26)
[2019-04-03] MEDS: LEVOTHYROXINE 50 MCG TAB PO SCH (05:55)
[2019-04-03] MEDS: POTASSIUM CHLORIDE ER 10 MEQ TAB.ER.PRT PO SCH (08:41)
[2019-04-03] MEDS: CIPROFLOXACIN HCL 500 MG TAB PO SCH (08:41)
[2019-04-03] MEDS: ALLOPURINOL 100 MG TAB PO SCH (08:42)
[2019-04-03] MEDS: HEPARIN SODIUM,PORCINE 5,000 UNIT/ML 1 ML VIAL SQ SCH ×2 (08:42→20:07)
[2019-04-03] MEDS: FERROUS SULFATE 325 MG TAB PO SCH (08:42)
[2019-04-03] MEDS: MULTIVITAMINS, THERA 1 EACH TAB PO SCH (08:42)
[2019-04-03] MEDS: ISOSORBIDE MONONITRATE ER 30 MG TAB.ER.24H PO SCH (08:42)
[2019-04-03] MEDS: FUROSEMIDE 20 MG TAB PO SCH ×2 (08:42→18:19)
[2019-04-03] MEDS: PARoxetine 10 MG TAB PO SCH (08:42)
[2019-04-03] MEDS: FAMOTIDINE 20 MG TAB PO SCH (08:42)
[2019-04-03] MEDS: ASPIRIN 81 MG PO SCH (08:43)
[2019-04-03] MEDS: amLODIPine 5 MG TAB PO SCH (08:52)
[2019-04-03 09:04] LABS: Basophils % (A) 1 %; Eosinophils # (A) 0.3 k/uL (0-0.7); Eosinophils % (A) 4 %; HCT 34.8 % (34.0-46.0); HGB 10.9 gm/dL (11.4-16.0); Lymphocytes % (A) 30 %; MCH 29.7 pg (25.0-35.0); MCHC 31.2 g/dL (31.0-37.0); MCV 95.1 fL (80.0-100.0); Mean Platelet Volume 9.1; Monocytes # (A) 0.5 k/uL (0-1.0); Monocytes % (A) 8 %; Neutrophils # (A) 3.7 k/uL (1.3-7.7); Neutrophils % (A) 55 %; Platelet Count 183 k/uL (150-450); RBC 3.66 m/uL (3.80-5.40); RDW 12.9 % (11.5-15.5); WBC 6.7 k/uL (3.8-10.6)
[2019-04-03 09:19] LABS: Albumin 3.1 g/dL (3.5-5.0); Calcium 9.7 mg/dL (8.4-10.2); Potassium 4.5 mmol/L (3.5-5.1); Total Bilirubin 0.4 mg/dL (0.2-1.3); Total Protein 5.4 g/dL (6.3-8.2)
--- NOTE | 2019-04-03 11:13 | P.PN ---
Subjective Progress Note Date: 04/03/19 This is an 84-year-old female patient who presented with complaints of CHF exacerbation and noncompliance with medication. Patient currently resides at home with caretakers and was reported that patient was refusing medication. Patient has a history of developmental delay and per ER records patient had been more defiant with the past 2 days with caretakers regards to taking her medication in assisted with lifting. Additional medical history includes heart failure, hypertension, hypothyroidism, chronic pain in hip, osteoarthritis and depression. Chest x-ray completed showing poor inspiration that is decreased slightly compared to old exam failure. BNP 1230. Troponin 0.013. Urinary analysis showing small amount of leukocyte Estrace patient's creatinine elevated at 2.08 and bun 54. On examination patient is eating breakfast. Patient unable to discuss why she is not taking her medication. Patient denies any chest pain or shortness of breath. Patient denies nausea vomiting or diarrhea. Patient does state she has burning with urination. On 04/03/2019 patient is currently resting comfortably bed eating breakfast. Patient denies any specific complaints. Patient was evaluated by cardiology services. Patient had episode of bradycardia . Norvasc added. 2-D echo has been ordered.. Objective - Vital Signs Vital signs: Vital Signs Temp 98.0 F 04/03/19 05:56 Pulse 54 L 04/03/19 09:04 Resp 18 04/03/19 05:56 BP 106/69 04/03/19 05:56 Pulse Ox 96 04/03/19 08:54 Intake & Output 04/02/19 04/03/19 04/03/19 18:59 06:59 18:59 Intake Total 120 Balance 120 Weight 79 kg 78 kg Intake: Oral 120 Other: Voiding Method Diaper Diaper Diaper Incontinent Incontinent Incontinent # Voids 3 3 # Bowel Movements 2 1 - Exam Head normocephalic Neck supple Lungs diminished bilaterally Heart regular rate and rhythm S1-S2, no rub or gallop Abdomen is soft nontender nondistended positive bowel sounds no hepatosplenomegaly Extremities no edema Neuro developmentally delayed. Patient does follow commands - Labs CBC & Chem 7: 04/03/19 08:14 04/03/19 08:14 Labs: Abnormal Lab Results - Last 24 Hours (Table) 04/03/19 04/03/19 Range/Units 08:14 08:14 RBC 3.66 L (3.80-5.40) m/uL Hgb 10.9 L (11.4-16.0) gm/dL Carbon Dioxide 31 H (22-30) mmol/L BUN 57 H (7-17) mg/dL Creatinine 2.02 H (0.52-1.04) mg/dL Glucose 113 H (74-99) mg/dL Total Protein 5.4 L (6.3-8.2) g/dL Albumin 3.1 L (3.5-5.0) g/dL Microbiology - Last 24 Hours (Table) 04/01/19 23:00 Urine Culture - Preliminary Urine,Voided Assessment and Plan Assessment: 1. Possible CHF exacerbation. Cardiology services have been consulted. Patient started on IV Lasix. Per cardiology patient is euvolemic and not in heart failure. 2-D echo has been ordered patient switched to by mouth Lasix 2. Acute kidney injury. Creatinine elevated at 2.08 and bun 54. will Continue to monitor closely 3. Urinary tract infection. UA showing small amount of leukocyte Estrace. Urine culture added patient will be started on Cipro 4. History of congestive heart failure 5. History of essential hypertension 6. History of hypothyroidism. TSH level has been ordered 7. History of chronic pain to hip 8. History of depression 9. History of osteoarthritis 10. History of medication 11. Bradycardia. Beta lane discontinued and Norvasc added per cardiology. 2-D echo has been ordered 11. vague complaints of lower extremity pain. Venous Doppler completed no visualized DVT. X-rays completed showing no fracture or dislocation. DVT prophylaxis heparin. GI prophylaxis Pepcid Plan discharge to rehab possibly [facility] tomorrow
--- NOTE | 2019-04-03 12:39 | ECHOF ---
Referral Reason:sob MEASUREMENTS -------- HEIGHT: 157.5 cm WEIGHT: 77.6 kg BP: 106/69 RVIDd: 2.6 cm (< 3.3) IVSd: 1.5 cm (0.6 - 1.1) LVIDd: 3.2 cm (3.9 - 5.3) LVPWd: 1.3 cm (0.6 - 1.1) IVSs: 1.7 cm LVIDs: 2.2 cm LVPWs: 1.9 cm LA Diam: 2.9 cm (2.7 - 3.8) Ao Diam: 2.9 cm (2.0 - 3.7) MV EXCURSION: 9.718 mm (> 18.000) MV EF SLOPE: 38 mm/s (70 - 150) EPSS: 0.4 cm MV E Bertram: 0.86 m/s MV DecT: 285 ms MV A Bertram: 0.39 m/s MV E/A Ratio: 2.18 AR PHT: 1183 ms RAP: 5.00 mmHg RVSP: 25.15 mmHg FINDINGS -------- Resting bradycardia (HR<60bpm). This was a technically adequate study. The left ventricular size is normal. There is moderate concentric left ventricular hypertrophy. O verall left ventricular systolic function is normal with, an EF between 55 - 60 %. The right ventricle is normal in size. The left atrial size is normal. The right atrium is normal in size. Interatrial and interventricular septum intact. There is mild aortic valve sclerosis. The mitral valve leaflets are mildly thickened. Mild tricuspid regurgitation present. Right ventricular systolic pressure is normal at < 35 mmHg. The pulmonic valve was not well visualized. The aortic root size is normal. Normal inferior vena cava with normal inspiratory collapse consistent with estimated right atrial pre ssure of 5 mmHg. There is no pericardial effusion. CONCLUSIONS -------- 1. Resting bradycardia (HR<60bpm). 2. This was a technically adequate study. 3. The left ventricular size is normal. 4. There is moderate concentric left ventricular hypertrophy. 5. Overall left ventricular systolic function is normal with, an EF between 55 - 60 %. 6. The right ventricle is normal in size. 7. The left atrial size is normal. 8. The right atrium is normal in size. 9. Interatrial and interventricular septum intact. 10. There is mild aortic valve sclerosis. 11. The mitral valve leaflets are mildly thickened. 12. Right ventricular systolic pressure is normal at < 35 mmHg. 13. The pulmonic valve was not well visualized. 14. The aortic root size is normal. 15. Normal inferior vena cava with normal inspiratory collapse consistent with estimated right atrial pressure of 5 mmHg. 16. There is no pericardial effusion. MERCHANT PATROLLER: Sabrina Feliz RDCS
[2019-04-04] MEDS: IPRATROPIUM-ALBUTEROL 3 ML NEB INHALATION SCH ×4 (01:26→20:03)
[2019-04-04] MEDS: CIPROFLOXACIN HCL 500 MG TAB PO SCH ×2 (03:33→21:01)
[2019-04-04] MEDS: LEVOTHYROXINE 50 MCG TAB PO SCH ×2 (05:29→09:40)
[2019-04-04 08:04] LABS: Basophils % (A) 1 %; Eosinophils # (A) 0.3 k/uL (0-0.7); Eosinophils % (A) 4 %; HCT 33.5 % (34.0-46.0); HGB 10.7 gm/dL (11.4-16.0); Lymphocytes # (A) 1.9 k/uL (1.0-4.8); Lymphocytes % (A) 26 %; MCH 30.1 pg (25.0-35.0); MCHC 31.8 g/dL (31.0-37.0); MCV 94.6 fL (80.0-100.0); Mean Platelet Volume 9.6; Monocytes # (A) 0.5 k/uL (0-1.0); Monocytes % (A) 6 %; Neutrophils # (A) 4.4 k/uL (1.3-7.7); Neutrophils % (A) 60 %; Platelet Count 175 k/uL (150-450); RBC 3.54 m/uL (3.80-5.40); WBC 7.2 k/uL (3.8-10.6)
[2019-04-04 08:12] LABS: Calcium 9.3 mg/dL (8.4-10.2); Potassium 4.2 mmol/L (3.5-5.1); Total Bilirubin 0.4 mg/dL (0.2-1.3); Total Protein 5.2 g/dL (6.3-8.2)
[2019-04-04] MEDS: POTASSIUM CHLORIDE ER 10 MEQ TAB.ER.PRT PO SCH (09:40)
[2019-04-04] MEDS: ALLOPURINOL 100 MG TAB PO SCH (09:41)
[2019-04-04] MEDS: ASPIRIN 81 MG PO SCH (09:41)
[2019-04-04] MEDS: FUROSEMIDE 20 MG TAB PO SCH (09:41)
[2019-04-04] MEDS: amLODIPine 5 MG TAB PO SCH (09:41)
[2019-04-04] MEDS: MULTIVITAMINS, THERA 1 EACH TAB PO SCH (09:41)
[2019-04-04] MEDS: FERROUS SULFATE 325 MG TAB PO SCH (09:41)
[2019-04-04] MEDS: ISOSORBIDE MONONITRATE ER 30 MG TAB.ER.24H PO SCH (09:41)
[2019-04-04] MEDS: FAMOTIDINE 20 MG TAB PO SCH (09:41)
[2019-04-04] MEDS: PARoxetine 10 MG TAB PO SCH (09:45)
[2019-04-04] MEDS: HEPARIN SODIUM,PORCINE 5,000 UNIT/ML 1 ML VIAL SQ SCH ×2 (09:45→21:00)
--- NOTE | 2019-04-04 10:47 | P.PN ---
Subjective Progress Note Date: 04/04/19 This is an 84-year-old female patient who presented with complaints of CHF exacerbation and noncompliance with medication. Patient currently resides at home with caretakers and was reported that patient was refusing medication. Patient has a history of developmental delay and per ER records patient had been more defiant with the past 2 days with caretakers regards to taking her medication in assisted with lifting. Additional medical history includes heart failure, hypertension, hypothyroidism, chronic pain in hip, osteoarthritis and depression. Chest x-ray completed showing poor inspiration that is decreased slightly compared to old exam failure. BNP 1230. Troponin 0.013. Urinary analysis showing small amount of leukocyte Estrace patient's creatinine elevated at 2.08 and bun 54. On examination patient is eating breakfast. Patient unable to discuss why she is not taking her medication. Patient denies any chest pain or shortness of breath. Patient denies nausea vomiting or diarrhea. Patient does state she has burning with urination. On 04/03/2019 patient is currently resting comfortably bed eating breakfast. Patient denies any specific complaints. Patient was evaluated by cardiology services. Patient had episode of bradycardia . Norvasc added. 2-D echo has been ordered. On 04/04/2019 patient is currently resting comfortably in bed. Denies any specific complaints. Heart rate has improved. Possible discharge tomorrow to [facility] or [facility] per social work Objective - Vital Signs Vital signs: Vital Signs Temp 97.9 F 04/04/19 05:00 Pulse 62 04/04/19 07:37 Resp 16 04/04/19 05:00 BP 141/86 04/04/19 05:00 Pulse Ox 95 04/04/19 05:00 Intake & Output 04/03/19 04/04/19 04/04/19 18:59 06:59 18:59 Weight 78 kg Other: Voiding Method Diaper Diaper Incontinent Incontinent # Voids 1 1 - Exam Head normocephalic Neck supple Lungs diminished bilaterally Heart regular rate and rhythm S1-S2, no rub or gallop Abdomen is soft nontender nondistended positive bowel sounds no hepatosplenomegaly Extremities no edema Neuro developmentally delayed. Patient does follow commands - Labs CBC & Chem 7: 04/04/19 07:22 04/04/19 07:22 Labs: Abnormal Lab Results - Last 24 Hours (Table) 04/04/19 04/04/19 Range/Units 07:22 07:22 RBC 3.54 L (3.80-5.40) m/uL Hgb 10.7 L (11.4-16.0) gm/dL Hct 33.5 L (34.0-46.0) % BUN 59 H (7-17) mg/dL Creatinine 2.12 H (0.52-1.04) mg/dL Glucose 110 H (74-99) mg/dL Total Protein 5.2 L (6.3-8.2) g/dL Albumin 3.0 L (3.5-5.0) g/dL Microbiology - Last 24 Hours (Table) 04/01/19 23:00 Urine Culture - Preliminary Urine,Voided Gram Neg Bacilli Assessment and Plan Assessment: 1. Altered mental status likely related to urinary tract infection and acute kidney injury. 2. Congestive heart failure ruled out per cardiology. Cardiology services have been consulted. Patient started on IV Lasix. Per cardiology patient is euvolemic and not in heart failure. 2-D echo completed showing an EF of 55-60% 2. Acute kidney injury. Creatinine elevated at 2.08 and bun 54. will Continue to monitor closely 3. Urinary tract infection. UA showing small amount of leukocyte Estrace. Urine culture added patient will be started on Cipro. Urine currently growing gram-negative bacilli 4. History of diastolic congestive heart failure 5. History of essential hypertension 6. History of hypothyroidism. TSH level 2.320 7. History of chronic pain to hip 8. History of depression 9. History of osteoarthritis 10. History of medication noncompliance. 11. Bradycardia. Beta lane discontinued and Norvasc added per cardiology. 2-D echo completed showing EF of 55-60%. Heart rate has improvede 11. vague complaints of lower extremity pain. Venous Doppler completed no visualized DVT. X-rays completed showing no fracture or dislocation. DVT prophylaxis heparin. GI prophylaxis Pepcid Plan possible discharge to rehab [facility] [address] tomorrow I performed an examination of the patient and discussed their management with the Nurse Practitioner. I have reviewed the Nurse Practitioner's notes and agree with the documented findings and plan of care
[2019-04-05] MEDS: IPRATROPIUM-ALBUTEROL 3 ML NEB INHALATION SCH ×5 (00:52→21:25)
[2019-04-05] MEDS ORDERED: IPRATROPIUM-ALBUTEROL 3 ML NEB INHALATION PRN (00:52)
[2019-04-05] MEDS: LEVOTHYROXINE 50 MCG TAB PO SCH (06:03)
[2019-04-05] MEDS: FERROUS SULFATE 325 MG TAB PO SCH (07:54)
[2019-04-05] MEDS: amLODIPine 5 MG TAB PO SCH (07:54)
[2019-04-05] MEDS: ISOSORBIDE MONONITRATE ER 30 MG TAB.ER.24H PO SCH (07:54)
[2019-04-05] MEDS: POTASSIUM CHLORIDE ER 10 MEQ TAB.ER.PRT PO SCH (07:54)
[2019-04-05] MEDS: ASPIRIN 81 MG PO SCH (07:54)
[2019-04-05] MEDS: MULTIVITAMINS, THERA 1 EACH TAB PO SCH (07:54)
[2019-04-05] MEDS: PARoxetine 10 MG TAB PO SCH (07:54)
[2019-04-05] MEDS: HEPARIN SODIUM,PORCINE 5,000 UNIT/ML 1 ML VIAL SQ SCH ×2 (07:55→21:11)
[2019-04-05] MEDS: FAMOTIDINE 20 MG TAB PO SCH (07:55)
[2019-04-05] MEDS: ALLOPURINOL 100 MG TAB PO SCH (07:55)
[2019-04-05 08:23] LABS: Calcium 9.2 mg/dL (8.4-10.2); Potassium 4.4 mmol/L (3.5-5.1); Total Bilirubin 0.4 mg/dL (0.2-1.3); Total Protein 5.1 g/dL (6.3-8.2)
[2019-04-05 08:24] LABS: Basophils % (A) 1 %; Eosinophils # (A) 0.2 k/uL (0-0.7); Eosinophils % (A) 3 %; HCT 34.2 % (34.0-46.0); HGB 10.9 gm/dL (11.4-16.0); Lymphocytes # (A) 1.5 k/uL (1.0-4.8); Lymphocytes % (A) 20 %; MCH 30.8 pg (25.0-35.0); MCHC 31.8 g/dL (31.0-37.0); MCV 96.9 fL (80.0-100.0); Mean Platelet Volume 10.3; Monocytes # (A) 0.6 k/uL (0-1.0); Monocytes % (A) 7 %; Neutrophils # (A) 5.1 k/uL (1.3-7.7); Neutrophils % (A) 67 %; Platelet Count 155 k/uL (150-450); RBC 3.53 m/uL (3.80-5.40); RDW 13.5 % (11.5-15.5); WBC 7.5 k/uL (3.8-10.6)
[2019-04-05] MEDS ORDERED: FUROSEMIDE 20 MG TAB PO SCH (09:00)
[2019-04-05] MEDS: CEPHALEXIN 500 MG CAP PO SCH ×2 (10:17→21:11)
--- NOTE | 2019-04-05 15:36 | P.PN ---
Subjective Progress Note Date: 04/05/19 (Delayed charting seen at 12:30) Principal diagnosis: Falls and refusing medications. Patient is an 84-year-old female with past medical history of congestive heart failure, developmental delay, hypertension, chronic pain, osteoarthritis and depression who initially was brought in by her caretakers as she had been refusing medications and they were worried her CHF was worsening. In the ER she underwent an extensive evaluation. On arrival her vital signs within normal limits. Initial laboratory analysis showed a slightly elevated BUN and creatinine. Baseline creatinine is approximately 1.84. BNP was within normal limits on admission. Chest x-ray did not show any signs of heart failure. Left femur x-ray was negative. Left forearm showed no acute fracture or dislocation. Left humerus showed no fracture or dislocation. Left leg x-ray showed no fracture or dislocation. Lower extremity Doppler was limited but did not show any thrombus in veins were visualized. Echocardiogram showed preserved ejection fraction of 55-60%, as well as moderate LVH. Cardiology saw the patient and felt a little anemic and not reflective of heart failure. They did suggest starting amlodipine 10 mg daily for blood pressure control. Patient developed increasing creatinine and IV Lasix was discontinued she was resumed on home oral Lasix, creatinine continued to increase. Last dose of oral Lasix with 04/05. We will try aggressive oral fluid hydration nursing feels patient will be amenable. She was also noted to have a urinary tract infection with E. coli that was pansensitive. She initially was started on Cipro while awaiting sensitivities however due to her being elderly and already having mood alterations Cipro was considered a suboptimal choice and she was therefore transitioned to Keflex. Patient seen and examined at bedside. No chest pain, shortness breath, nausea, or vomiting. Objective - Vital Signs Vital signs: Vital Signs Temp 97.7 F 04/05/19 11:37 Pulse 72 04/05/19 11:46 Resp 16 04/05/19 14:49 BP 136/69 04/05/19 11:37 Pulse Ox 92 L 04/05/19 11:37 Intake & Output 04/04/19 04/05/19 04/05/19 18:59 06:59 18:59 Intake Total 590 820 Balance 590 820 Weight 78 kg Intake: Oral 590 820 Other: Voiding Method Diaper Diaper Diaper Incontinent Incontinent Incontinent # Voids 1 3 3 # Bowel Movements 1 - Exam General: non toxic, no distress, appears at stated age Derm: warm, dry Head: atraumatic, normocephalic, symmetric Eyes: EOMI, no lid lag, anicteric sclera Mouth: no lip lesion, mucus membranes moist, poor dentition Cardiovascular: S1S2 reg, no murmur, positive posterior tibial pulse bilateral, Lungs: Decreased breath sounds bilateral, no rhonchi, no rales , no accessory muscle use Abdominal: soft, nontender to palpation, no guarding, no appreciable organomegaly Ext: no gross muscle atrophy, no edema, no contractures, kyphosis Neuro: CN II-XI grossly intact, no focal neuro deficits Psych: Alert, oriented, appropriate affect - Labs CBC & Chem 7: 04/05/19 07:18 04/05/19 07:18 Labs: Abnormal Lab Results - Last 24 Hours (Table) 04/05/19 04/05/19 Range/Units 07:18 07:18 RBC 3.53 L (3.80-5.40) m/uL Hgb 10.9 L (11.4-16.0) gm/dL BUN 61 H (7-17) mg/dL Creatinine 2.24 H (0.52-1.04) mg/dL Glucose 122 H (74-99) mg/dL Total Protein 5.1 L (6.3-8.2) g/dL Albumin 3.0 L (3.5-5.0) g/dL Microbiology - Last 24 Hours (Table) 04/01/19 23:00 Urine Culture - Final Urine,Voided Escherichia coli Assessment and Plan Assessment: Acute kidney injury on 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 E. coli UTI -Suggest Keflex twice a day 2 more days -Stop Cipro Diastolic congestive heart failure, compensated -Off Lasix - of BB due to bradycardia - of ARB due to GENESIS Hypertension, accelerated -Norvasc increased to 10 - of atenolol due to bradycardia, no losartan due to GENESIS -Follow blood pressures Hypothyroidism -Continue Synthroid Toxic metabolic encephalopathy, resolved Bradycardia, resolved, off atenolol Chronic conditions: Chronic pain of hip, depression, osteoarthritis, medication noncompliance DVT prophylaxis: Heparin Discussed with: Patient, nursing, and social work Anticipated discharge: in AM Anticipated discharge place: [facility] A total of 35 minutes was spent on the care of this complex patient more than 50% of the time was spent in counseling and care coordination.
[2019-04-06 04:51] VITALS: BP 158/70; RESP 16; TEMP 97.9
[2019-04-06] MEDS: HYDROcodone/APAP 5-325MG 1 EACH TAB PO PRN (06:11)
[2019-04-06] MEDS: LEVOTHYROXINE 50 MCG TAB PO SCH (06:11)
[2019-04-06 07:26] LABS: HCT 32.7 % (34.0-46.0); HGB 10.2 gm/dL (11.4-16.0); MCH 29.7 pg (25.0-35.0); MCHC 31.3 g/dL (31.0-37.0); MCV 94.9 fL (80.0-100.0); Mean Platelet Volume 10.4; Platelet Count 155 k/uL (150-450); RBC 3.44 m/uL (3.80-5.40); RDW 12.8 % (11.5-15.5); WBC 6.6 k/uL (3.8-10.6)
[2019-04-06 07:48] LABS: Calcium 9.4 mg/dL (8.4-10.2); Potassium 4.5 mmol/L (3.5-5.1)
[2019-04-06] MEDS: IPRATROPIUM-ALBUTEROL 3 ML NEB INHALATION SCH (08:22)
[2019-04-06 08:33] VITALS: PULSE 68
[2019-04-06] MEDS: ALLOPURINOL 100 MG TAB PO SCH (08:33)
[2019-04-06] MEDS: PARoxetine 10 MG TAB PO SCH (08:33)
[2019-04-06] MEDS: ISOSORBIDE MONONITRATE ER 30 MG TAB.ER.24H PO SCH (08:33)
[2019-04-06] MEDS: CEPHALEXIN 500 MG CAP PO SCH (08:33)
[2019-04-06] MEDS: MULTIVITAMINS, THERA 1 EACH TAB PO SCH (08:33)
[2019-04-06] MEDS: FAMOTIDINE 20 MG TAB PO SCH (08:33)
[2019-04-06] MEDS: ASPIRIN 81 MG PO SCH (08:33)
[2019-04-06] MEDS: FERROUS SULFATE 325 MG TAB PO SCH (08:33)
[2019-04-06] MEDS: HEPARIN SODIUM,PORCINE 5,000 UNIT/ML 1 ML VIAL SQ SCH (08:33)
[2019-04-06] MEDS ORDERED: amLODIPine 10 MG TAB PO SCH (09:00)
--- NOTE | 2019-04-06 09:57 | P.DS ---
Providers Date of admission: 04/02/19 14:01 Expected date of discharge: 04/06/19 Attending physician: Marcos Nick Consults: 04/02/19 10:07 Consult Physician Routine Consulting Provider: Brian Dominguez Consult Reason/Comments: questionable chf exacerbation Do you want consulting provider notified?: Yes Primary care physician: Marcos Nick [facility] Hospital Course: Discharge Diagnosis: Acute kidney injury on chronic kidney disease stage IV E. coli urinary tract infection Diastolic congestive heart failure, compensated Hypertension, accelerated Hypothyroidism Toxic metabolic encephalopathy Bradycardia-resolved off atenolol Chronic hip pain Depression Osteoarthritis History of medication noncompliance Intellectual disability Hospital Course: Patient is an 84-year-old female with past medical history of congestive heart failure, developmental delay, hypertension, chronic pain, osteoarthritis and depression who initially was brought in by her caretakers as she had been refusing medications and they were worried her CHF was worsening. In the ER she underwent an extensive evaluation. On arrival her vital signs within normal limits. Initial laboratory analysis showed a slightly elevated BUN and creatinine. Baseline creatinine is approximately 1.84. BNP was within normal limits on admission. Chest x-ray did not show any signs of heart failure. Left femur x-ray was negative. Left forearm showed no acute fracture or dislocation. Left humerus showed no fracture or dislocation. Left leg x-ray showed no fracture or dislocation. Lower extremity Doppler was limited but did not show any thrombus in veins were visualized. Echocardiogram showed preserved ejection fraction of 55-60%, as well as moderate LVH. Cardiology saw the patient and felt a little anemic and not reflective of heart failure. They did suggest starting amlodipine 10 mg daily for blood pressure control. Patient developed increasing creatinine and IV Lasix was discontinued she was resumed on home oral Lasix, creatinine continued to increase. Last dose of oral Lasix with 04/05. We will try aggressive oral fluid hydration nursing feels patient will be amenable. She was also noted to have a urinary tract infection with E. coli that was pansensitive. She initially was started on Cipro while awaiting sensitivities however due to her being elderly and already having mood alterations she was therefore transitioned to Keflex. Her kidney function improved with oral hydration and her Lasix being held. She is determined stable for discharge to [facility]. She can resume her Lasix and potassium on 04/08/19 and I do suggest a repeat basic metabolic profile in 04/08/19. She has 2 more days of Keflex to finish up her course. She was discharged in stable condition. Patient seen and examined at bedside. Denies any chest pain, shortness breath, nausea, or vomiting. Pain is well controlled. Vital signs reviewed and stable. General: non toxic, no distress, appears at stated age Derm: warm, dry Head: atraumatic, normocephalic, symmetric Eyes: EOMI, no lid lag, anicteric sclera Mouth: no lip lesion, mucus membranes moist Cardiovascular: S1S2 reg, no murmur, positive posterior tibial pulse bilateral, Lungs: Decreased breath sounds bilateral, no rhonchi, no rales , no accessory muscle use Abdominal: soft, nontender to palpation, no guarding, no appreciable organomegaly Ext: no gross muscle atrophy, no edema, no contractures Neuro: CN II-XI grossly intact, no focal neuro deficits Psych: Alert, oriented, appropriate affect , slow thinking A total of 35 minutes of time were spent preparing this complex discharge summary . Pertinent Studies: Chest x-ray did not show any signs of heart failure. Left femur x-ray showed on acute process. Left forearm showed no acute fracture or dislocation. Left humerus showed no fracture or dislocation. Left leg x-ray showed no fracture or dislocation. Lower extremity Doppler was limited but did not show any thrombus in veins were visualized. Echocardiogram showed preserved ejection fraction of 55-60%, as well as moderate LVH. Patient Condition at Discharge: Stable Plan - Discharge Summary Discharge Rx Participant: No New Discharge Prescriptions: New Ipratropium-Albuterol Nebulize [Duoneb 0.5 mg-3 mg/3 ml Soln] 3 ml INHALATION RT-QID ampul.neb Cephalexin [Keflex] 500 mg PO BID 2 Days #4 cap HYDROcodone/APAP 5-325MG [Coin 5-325] 1 each PO Q8H PRN #9 tab PRN Reason: Pain amLODIPine [Norvasc] 10 mg PO DAILY tab Losartan [Cozaar] 25 mg PO DAILY #30 tab Continue PARoxetine HCL 30 mg PO DAILY Levothyroxine Sodium [Synthroid] 50 mcg PO DAILY Isosorbide Mononitrate ER [Imdur] 30 mg PO DAILY Potassium Chloride [Klor-Con 10] 10 meq PO DAILY Ferrous Sulfate [Feosol] 325 mg PO DAILY Aspirin 81 mg PO DAILY Furosemide [Lasix] 20 mg PO DAILY #30 tab Omeprazole 20 mg PO DAILY Nitroglycerin Sl Tabs [Nitrostat] 0.4 mg SUBLINGUAL Q5M PRN PRN Reason: Chest Pain Allopurinol [Zyloprim] 100 mg PO DAILY Multivitamins, Thera [Multivitamin (formulary)] 1 tab PO DAILY Ergocalciferol (Vitamin D2) [Vitamin D2] 50,000 unit PO MAGDALENO Discontinued Hydrocodone/Acetaminophen [Hydrocodone/Acetaminophen 5-325] 1 tab PO Q8H PRN PRN Reason: Pain Atenolol [Tenormin] 25 mg PO BID Losartan Potassium 100 mg PO DAILY Discharge Medication List Aspirin 81 mg PO DAILY 01/22/14 [History] Ferrous Sulfate [Feosol] 325 mg PO DAILY 01/22/14 [History] Isosorbide Mononitrate ER [Imdur] 30 mg PO DAILY 01/22/14 [History] Levothyroxine Sodium [Synthroid] 50 mcg PO DAILY 01/22/14 [History] PARoxetine HCL 30 mg PO DAILY 01/22/14 [History] Potassium Chloride [Klor-Con 10] 10 meq PO DAILY 01/22/14 [History] Furosemide [Lasix] 20 mg PO DAILY #30 tab 01/25/14 [Rx] Allopurinol [Zyloprim] 100 mg PO DAILY 12/28/16 [History] Nitroglycerin Sl Tabs [Nitrostat] 0.4 mg SUBLINGUAL Q5M PRN 12/28/16 [History] Omeprazole 20 mg PO DAILY 12/28/16 [History] Multivitamins, Thera [Multivitamin (formulary)] 1 tab PO DAILY 12/01/17 [History] Ergocalciferol (Vitamin D2) [Vitamin D2] 50,000 unit PO MAGDALENO 04/01/19 [History] Cephalexin [Keflex] 500 mg PO BID 2 Days #4 cap 04/06/19 [Rx] HYDROcodone/APAP 5-325MG [Coin 5-325] 1 each PO Q8H PRN #9 tab 04/06/19 [Rx] Ipratropium-Albuterol Nebulize [Duoneb 0.5 mg-3 mg/3 ml Soln] 3 ml INHALATION RT-QID ampul.neb 04/06/19 [Rx] Losartan [Cozaar] 25 mg PO DAILY #30 tab 04/06/19 [Rx] amLODIPine [Norvasc] 10 mg PO DAILY tab 04/06/19 [Rx] Follow up Appointment(s)/Referral(s): Marcos Nick MD [Primary Care Provider] - 1-2 days Activity/Diet/Wound Care/Special Instructions: Diet: heart health Activity: as tolerated, fall precautions Resume Lasix and Potassium on 04/08 BMP on 04/08 or 04/09 DX: GENESIS on CKD
[2019-04-07] MEDS ORDERED: ERGOCALCIFEROL 50,000 UNIT CAP PO SCH (09:00)
== END 2019-04-06 11:15 | DRG 682 ==
LOC: EC 19:33 → 3NMEDONC 23:28 → OBSVTOIN 04-02 14:01
PROVIDERS: ADMIT Internal Medicine; ATTEND Internal Medicine
DX: N17.9 Acute kidney failure, unspecified (principal); G92 Toxic encephalopathy; N39.0 Urinary tract infection, site not specified; I50.32 Chronic diastolic (congestive) heart failure; I13.0 Hypertensive heart and chronic kidney disease with heart failure and stage 1 through stage 4 chronic kidney disease, or unspecified chronic kidney disease; F32.9 Major depressive disorder, single episode, unspecified; E03.9 Hypothyroidism, unspecified; M19.90 Unspecified osteoarthritis, unspecified site; I25.10 Atherosclerotic heart disease of native coronary artery without angina pectoris; D64.9 Anemia, unspecified; N18.4 Chronic kidney disease, stage 4 (severe); B96.20 Unspecified Escherichia coli [E. coli] as the cause of diseases classified elsewhere; F79 Unspecified intellectual disabilities; R00.1 Bradycardia, unspecified; M25.559 Pain in unspecified hip; G89.29 Other chronic pain; Z79.82 Long term (current) use of aspirin; Z98.890 Other specified postprocedural states; Z79.890 Hormone replacement therapy; Z91.19 Patient's noncompliance with other medical treatment and regimen; Z91.14 Patient's other noncompliance with medication regimen; Z79.899 Other long term (current) drug therapy; Z87.440 Personal history of urinary (tract) infections; Z95.5 Presence of coronary angioplasty implant and graft; Z88.0 Allergy status to penicillin; Z90.89 Acquired absence of other organs; Z90.49 Acquired absence of other specified parts of digestive tract
CPT/HCPCS: 36415; 51701; 71046; 80048; 80053; 81001; 83880; 84443; 84484; 85025; 85027; 87077; 87086; 87186; 93005; 93306; 93970; 94640; 94760; 96374; 99285